=== PATIENT | male | born 1985 | race Caucasian/White ===

== ENCOUNTER 2019-06-07 17:11 | Emergency (ER) | payer SELFPAY ==
[2019-06-07 17:18] VITALS: BP 114/63; PULSE 60; RESP 18; TEMP 36.6; O2SAT 98
--- NOTE | 2019-06-07 17:34 | ED.GENADUL_ITS ---
Discharge Plan Disposition Patient Disposition: HOME Condition: Stable Discharge Details Chief Complaint: Nk/Back Pain Clinical Impression: Lumbar strain Primary Care Provider: None,None ED Provider: David Navarro Home Meds and New Rx's Prescriptions: New cyclobenzaprine 10 mg tablet 10 mg PO TID PRN (Reason: muscle spasm) Qty: 20 RF: 0 Continued Back and Body Pain Reliever 500-32.5 mg Tablet PO RF: 0 Discharge Instructions Instructions: Low Back Strain (ED) Additional Instructions: you can try lidocaine 4% patches that are over the counter if you have difficulty urinating, fevers or severe worsening of pain return to the emergency department I placed you on our follow up list to get set up with a primary care provider Stand Alone Forms: Work Release Medical Decision Making 33 yo male who denies chronic medical problems comes in with lower back pain. He states he gets back pain off and on for years and at his current job does a lot of twisting at the waist and thinks he strained it. Denies falling or trauma. Denies fevers, ivdu,difficulty urinating. He has no weakness on exam, no saddle anesthesia, normal senastion. No findings on exam or history to suggest cauda equina or sea. Has pain throughout the lumbar region, no palpable defects. His exam is consistent with strain, less likely disc herniation. will have him start muscle relaxers and f/u with a pcp, return precautions given. No abdominal tenderness so doubt entities such as appendicitis Differential Diagnosis Differential Diagnosis: lumbar strain, muscle spasm, disc herniation HPI General Mode of arrival: ambulatory . Date/Time Provider Initiated Documentation: 06/07/19 17:18 . Limitations to Documentation: no limitations . Information obtained by: patient . History of Present Illness 33 year old M presents to the emergency department with the chief complaint of low back pain, described as moderate, Quality is described as aching, and is localized to the back. Patient reports no radiation. Patient started experiencing this day(s) (1) and it has been constant. No relieving factors improve symptom(s), No exacerbating factors reported . Patient did receive the following treatments prior to arrival, none Related Data Home Medications Medication Instructions Recorded Confirmed Back and Body Pain Reliever tab PO 06/07/19 cyclobenzaprine 10 mg PO TID PRN #20 tab 06/07/19 Previous Rx's Medication Instructions Recorded cyclobenzaprine 10 mg PO TID PRN #20 tab 06/07/19 Allergies Allergy/AdvReac Type Severity Reaction Status Date / Time No Known Allergies Allergy Unverified 06/07/19 17:22 General Stated Complaint: Nk/Back Pain LENARD: 4 Review of Systems Review of Systems ROS Unobtainable: All systems reviewed & are unremarkable except as noted in HPI and below Constitutional Constitutional: Denies chills, Denies fever(s) and Denies weakness Cardiovascular Cardiovascular: Denies dyspnea Respiratory Respiratory: Denies dyspnea Gastrointestinal Gastrointestinal: Denies abdominal pain, Denies nausea and Denies vomiting Musculoskeletal Musculoskeletal: Denies joint swelling Neurologic Neurologic: Denies weakness PFSH Social History Smoking/Tobacco Use Status: Unknown Do you feel safe at home: Yes Do you feel safe in your relationship?: Yes Exam Const General: no acute distress Orientation: alert HENMT Head: normal to inspection Ears: external ears normal General nose exam: external nose normal Mouth: moist mucous membranes Eyes General: appearance normal, both eyes and all related structures Neck Neck: normal visual inspection Resp Effort & Inspection: normal respiratory effort and able to speak in complete sentences Cardio Rate: regular rate Back/Spine/Pelvis Back: no CVA tenderness Skin General skin exam: no rashes or lesions noted Neuro General: alert and oriented x3 Extrem General: normal to inspection Psych Mental Status: mental status grossly normal Course Vital Signs Vital signs: Vital Signs Temperature 36.6 C 06/07/19 17:18 Pulse 60 06/07/19 17:18 Respiratory Rate 18 06/07/19 17:18 Blood Pressure 114/63 06/07/19 17:18 Pulse Oximetry 98 06/07/19 17:18 Temperature 36.6 C 06/07/19 17:18 Temperature Source Temporal Artery Scan 06/07/19 17:18 Pulse 60 06/07/19 17:18 Respiratory Rate 18 06/07/19 17:18 Blood Pressure 114/63 06/07/19 17:18 Blood Pressure Position Standing 06/07/19 17:18 Pulse Oximetry 98 06/07/19 17:18 Oxygen Delivery Method Room Air 06/07/19 17:18 Oxygen Flow Rate 0 06/07/19 17:18 Pain Level 7 06/07/19 17:18
[2019-06-07] MEDS: Cyclobenzaprine 10 MG TAB PO (17:40)
== END 2019-06-07 17:45 | disposition home or self-care (01) ==
LOC: ER 17:48
PROVIDERS: Emergency Provider Emergency Medicine
DX: S39.012A Strain of muscle, fascia and tendon of lower back, initial encounter (principal); X50.3XXA Overexertion from repetitive movements, initial encounter; G89.29 Other chronic pain; M54.5 Low back pain
CPT/HCPCS: 99283

== ENCOUNTER 2020-07-16 08:06 | Emergency (ER) | payer MEDICAID, SELFPAY ==
[2020-07-16 08:10] VITALS: BP 130/75; PULSE 84; TEMP 36.7; O2SAT 98
--- NOTE | 2020-07-16 08:15 | DI.RAD_ITS ---
EXAM: XR SHOULDER LT COMPLETE 2+V CLINICAL HISTORY: Pain. TECHNIQUE: 2D digital imaging was performed. COMPARISON: No exams were available for comparison FINDINGS: BONES: No acute fracture is present. No bony destructive lesion is seen. JOINTS: No dislocation present. SOFT TISSUE: Normal. IMPRESSION: Unremarkable radiographs of the left shoulder. DATA REPOSITORY: RADIATION DOSE DELIVERED:
--- NOTE | 2020-07-16 08:20 | W.ED.GENAD ---
Discharge Plan Disposition Patient Disposition: HOME Condition: Stable Discharge Details Clinical Impression: Tendinitis of left rotator cuff Primary Care Provider: None,None ED Provider: Treasure Villalobos Home Meds and New Rx's Prescriptions: New ibuprofen 800 mg tablet 800 mg PO Q8H PRN (Reason: pain) Qty: 20 RF: 0 Continued cyclobenzaprine 10 mg tablet 10 mg PO TID PRN (Reason: muscle spasm) Qty: 20 RF: 0 Discharge Instructions Instructions: Tendinitis (ED) Additional Instructions: Follow up with primary care provider in 3-5 days. Return to ED sooner if any worsening or concerns. Increase oral fluids. Please take Tylenol or Ibuprofen with food every 4-6 hours as needed for pain and swelling. Alternate ice and heat. Use sling as needed for comfort. Follow-up with orthopedics in 1 to 2 weeks if needed if continued pain. Stand Alone Forms: Work Release Referrals: John Boland MD [ [facility] STAFF PHYSICIAN] - Discharge Data Discharge Date/Time-TO BE ENTERED AT DEPARTURE: 07/16/20 09:09 Medical Decision Making 34-year-old male presents to the ER with chief complaint of left shoulder pain he reports increased pain that last night around 3 AM. He states he does a lot of repetitive motions and heavy lifting at work. He denies any recent other injuries that are known. He had did not take any medications prior to arrival. There is no obvious deformity or swelling noted on exam. She does have pinpoint anterior supraspinatus tenderness and tenderness over the AC joint. He reports pain radiates down to his proximal humerus area. No elbow pain no wrist pain distal radial pulses intact. Extremity is pink warm dry. X-rays ordered ibuprofen 800 mg. EXAM: XR SHOULDER LT COMPLETE 2+V CLINICAL HISTORY: Pain. TECHNIQUE: 2D digital imaging was performed. COMPARISON: No exams were available for comparison FINDINGS: BONES: No acute fracture is present. No bony destructive lesion is seen. JOINTS: No dislocation present. SOFT TISSUE: Normal. IMPRESSION: Unremarkable radiographs of the left shoulder. Patient given prescription for ibuprofen 8 or milligrams, discussed x-ray results with him he verbalized understanding. Will place him on a care management list to follow-up and establish care with primary care provider. Discussed lidocaine patches alternate ice and heat and using sling as needed. HPI General Mode of arrival: ambulatory. Date/Time Provider Initiated Documentation: 07/16/20 08:06. Limitations to Documentation: no limitations. Information obtained by: patient. HPI Narrative: 34-year-old male presents to the ER with chief complaint of left shoulder pain he reports increased pain that last night around 3 AM. He states he does a lot of repetitive motions and heavy lifting at work. He denies any recent other injuries that are known. He had did not take any medications prior to arrival. There is no obvious deformity or swelling noted on exam. She does have pinpoint anterior supraspinatus tenderness and tenderness over the AC joint. He reports pain radiates down to his proximal humerus area. No elbow pain no wrist pain distal radial pulses intact. Extremity is pink warm dry. Related Data Home Medications Medication Instructions Recorded Confirmed cyclobenzaprine 10 mg PO TID PRN #20 tab 06/07/19 07/16/20 ibuprofen 800 mg PO Q8H PRN #20 tab 07/16/20 Previous Rx's Medication Instructions Recorded cyclobenzaprine 10 mg PO TID PRN #20 tab 06/07/19 ibuprofen 800 mg PO Q8H PRN #20 tab 07/16/20 Allergies Allergy/AdvReac Type Severity Reaction Status Date / Time No Known Allergies Allergy Unverified 07/16/20 08:17 General Stated Complaint: Orthopedic LENARD: 3 Review of Systems Narrative: Constitutional: Negative for weight loss, alert and oriented, well groomed, normal body habitus, appears comfortable. HEENT: Denies trauma, headaches, blurry vision, nasal discharge, sore throat, trouble swallowing. Chest: Denies chest pain, palpitations, irregular rhythm, hypertension. Respiratory: Denies Shortness of breath, cough, hemoptysis. Musculoskeletal: Complaining of left shoulder pain [facility] Social History Smoking/Tobacco Use Status: Never Smoking risk assessment performed?: Yes Alcohol Intake: current Alcohol Intake frequency: 0-2 drinks per day Alcohol type: hard liquor Drug use: Daily Substance use type: marijuana Do you feel safe at home: Yes Do you feel safe in your relationship?: Yes Exam Narrative Exam Narrative: Constitutional: Alert and oriented x3. Appears stated age. Normal body habitus. Head: Normocephalic, no trauma. Eyes: Pupils PERRLA, Red reflex noted, EOM's intact. Eyelids symmetrical without lesions, discharge, or swelling. ENT: Bilateral TM's WNL, External ear normal to inspection, no mastoid TTP, swelling, or erythema, Nasal turbinates WNL, no nasal discharge. Normal dentition, Posterior pharynx WNL, no exudate. Chest: RRR, Normal S1, S2, distal pulses intact. Resp: Lungs clear to auscultation bilaterally, no wheezes, rales, or rhonchi. Musculoskeletal: Normal gait, 5/5 strength to all four extremities. Does have tenderness with palpation to the left anterior shoulder over the AC joint and over the supraspinatus muscle. No obvious deformity, extremities pink warm dry. Distal radial pulses intact. No tenderness noted to the elbow. Skin: No suspicious rashes or lesions. Capillary refill less than 2 sec. Neurologic: Cranial nerves II-XII intact. Alert and oriented x 3. DTR's intact. Hematologic/Lymphatic: No ecchymosis, no lymphadenopathy. Course Vital Signs Vital signs: Vital Signs Temperature 36.7 C 07/16/20 08:10 Pulse 84 07/16/20 08:10 Blood Pressure 130/75 07/16/20 08:10 Pulse Oximetry 98 07/16/20 08:10 Temperature 36.7 C 07/16/20 08:10 Temperature Source Temporal Artery Scan 07/16/20 08:10 Pulse 84 07/16/20 08:10 Respiratory Effort Non-Labored 07/16/20 08:14 Blood Pressure 130/75 07/16/20 08:10 Blood Pressure Position Sitting 07/16/20 08:10 Pulse Oximetry 98 07/16/20 08:10 Oxygen Delivery Method Room Air 07/16/20 08:10 Oxygen Flow Rate 0 07/16/20 08:10 Pain Level 8 07/16/20 08:16
[2020-07-16] MEDS: Ibuprofen 800 MG TAB PO (08:39)
--- NOTE | 2020-07-17 19:46 | CMPROGNOTE_ITS ---
- If Service Date Differs Date of service: 07/17/20 Time of Service: 19:46 Care Management Progress Note Rahat is seen in the ED on 07/16/20 for tendinitis of left rotator cuff. At the request of ED provider, STACIE coordinates a referral to Jolene Berrios NP, on-call provider, of [facility] to assist Rahat in obtaining a follow up appointment and in establishing care with a PCP. He has Medicaid for insurance.
== END 2020-07-16 09:09 | disposition home or self-care (01) ==
PROVIDERS: Emergency Provider Registered Nurse Emergency
DX: M70.812 Other soft tissue disorders related to use, overuse and pressure, left shoulder (principal); M75.102 Unspecified rotator cuff tear or rupture of left shoulder, not specified as traumatic; X50.3XXA Overexertion from repetitive movements, initial encounter
CPT/HCPCS: 99283; 73030